=== PATIENT | male | born 1980 | race Caucasian/White ===

== ENCOUNTER 2018-12-28 15:23 | Emergency (ER) | payer MEDICAID, OTHER ==
[~2018-12-28] VITALS: Ht 177.8 cm; Wt 96.6 kg
--- NOTE | 2018-12-28 15:30 | NUR ---
PAtient ambulatory, A/Ox4. Came in for c/o left side of face, left arm and left leg 05/30 pain. Awaiting to be seen by . Addendum: 12/28/18 at 1737 by DARLENE c/o right side of face, arm and leg, not left
[2018-12-28] MEDS ORDERED: BACITRACIN ZINC OINT PACKET 1 EA PACKET TP ONE ×2 (16:28→16:30)
[2018-12-28] MEDS ORDERED: HYDROCODONE/APAP 10/325MG 1 EA TABLET ONE (16:29)
[2018-12-28] MEDS ORDERED: HYDROCODONE/APAP 10/325MG 1 EA TABLET PO ONE (16:30)
--- NOTE | 2018-12-28 16:30 | NUR ---
XR tech at bedside. [place] given as ordered.
--- NOTE | 2018-12-28 17:30 | NUR ---
Patient requested to get out for a while to smoke, insisting
--- NOTE | 2018-12-28 18:14 | NUR ---
Patient discharged to home in stable condition. Written and verbal after care instructions given. Patient verbalizes understanding of instruction.
--- NOTE | 2018-12-28 18:57 | NUR ---
Jeannie cabrera in ED - 12/28/18 at 1900 by DARLENE DCd patient stable. With splint.
[2018-12-28 18:58] VITALS: BP 121/81
--- NOTE | 2018-12-28 18:58 | NUR ---
Images CD given to patient
--- NOTE | 2018-12-28 19:01 | NUR ---
Patient went home without the splint done, made Merlyn aware.
--- NOTE | 2018-12-28 19:11 | NUR ---
Patient back to bed for splint placement.
== END 2018-12-28 19:02 | disposition home or self-care (01) ==
LOC: ER 15:23
DX: S52.571A Other intraarticular fracture of lower end of right radius, initial encounter for closed fracture (principal); S52.614A Nondisplaced fracture of right ulna styloid process, initial encounter for closed fracture; S86.811A Strain of other muscle(s) and tendon(s) at lower leg level, right leg, initial encounter; S00.81XA Abrasion of other part of head, initial encounter; F17.210 Nicotine dependence, cigarettes, uncomplicated; Z86.19 Personal history of other infectious and parasitic diseases; V00.328A Other snow-ski accident, initial encounter; Y93.89 Activity, other specified; Y92.89 Other specified places as the place of occurrence of the external cause; Y99.8 Other external cause status
CPT/HCPCS: 29125; 73110; 73551; 99283; 99406; A4606; 73552

== ENCOUNTER 2019-03-09 19:16 | Emergency (ER) | payer MEDICAID, OTHER ==
[~2019-03-09] VITALS: Ht 177.8 cm; Wt 90.7 kg
[2019-03-09 20:42] VITALS: BP 111/75
== END 2019-03-09 20:45 | disposition home or self-care (01) ==
LOC: ER 19:33
DX: Z48.01 Encounter for change or removal of surgical wound dressing (principal); F17.200 Nicotine dependence, unspecified, uncomplicated
CPT/HCPCS: 99283; A6402

== ENCOUNTER 2019-04-08 17:07 | Emergency (ER) | payer OTHER ==
[~2019-04-08] VITALS: Ht 175.3 cm; Wt 90.7 kg
[2019-04-08 17:25] VITALS: BP 138/69
--- NOTE | 2019-04-08 17:30 | NUR ---
NECK ABSCESS SINCE SATURDAY, PT STATES HE DRAIN IT HIMSELF LAST SATURDAY. PATIENT A/OX4, BREATHING EVEN AND UNLABORED, NO SOB NOTED. PATIENT ABLE TO VERBALIZE NEEDS. ABLE TO MOVE HEAD WITH NO DIFFICULTY. EVALUATED BY .
[2019-04-08] MEDS ORDERED: IBUPROFEN 600 MG TABLET PO ONE ×2 (17:59→18:00)
[2019-04-08] MEDS ORDERED: ACETAMINOPHEN ES 500 MG TABLET ONE (17:59)
[2019-04-08] MEDS ORDERED: ACETAMINOPHEN ES 500 MG TABLET PO ONE (18:00)
--- NOTE | 2019-04-08 18:22 | NUR ---
Patient discharged to home in stable condition. Written and verbal after care instructions given. Patient verbalizes understanding of instruction.
== END 2019-04-08 18:23 | disposition home or self-care (01) ==
LOC: ER 17:07
DX: L02.11 Cutaneous abscess of neck (principal); F10.99 Alcohol use, unspecified with unspecified alcohol-induced disorder; F17.200 Nicotine dependence, unspecified, uncomplicated; Y90.9 Presence of alcohol in blood, level not specified; Z98.890 Other specified postprocedural states; Z60.2 Problems related to living alone; Z86.19 Personal history of other infectious and parasitic diseases

== ENCOUNTER 2019-07-20 20:24 | Emergency (ER) | payer OTHER ==
[~2019-07-20] VITALS: Ht 180.3 cm; Wt 84.4 kg
[2019-07-20 20:31] VITALS: BP 129/76
== END 2019-07-20 21:01 | disposition home or self-care (01) ==
LOC: ER 20:30
DX: L03.113 Cellulitis of right upper limb (principal); F19.10 Other psychoactive substance abuse, uncomplicated; F17.200 Nicotine dependence, unspecified, uncomplicated; Z60.2 Problems related to living alone; Z86.19 Personal history of other infectious and parasitic diseases